=== PATIENT | male | born 1950 | race Caucasian/White ===

== ENCOUNTER 2017-05-29 11:17 | Emergency (ER) | payer BC ==
[~2017-05-29] VITALS: Ht 162.6 cm; Wt 79.0 kg
[2017-05-29 11:21] VITALS: TEMP 37; Ht 162.6 cm; Wt 79.0 kg
[2017-05-29] MEDS ORDERED: AMOXICIL/CLAVU 875MG HOME PACK PO ONE (11:45)
[2017-05-29] MEDS ORDERED: ALFU10TA2 PO (11:49)
[2017-05-29] MEDS ORDERED: LEVO25TA PO (11:49)
[2017-05-29] MEDS ORDERED: VYT1040 PO (11:49)
[2017-05-29] MEDS ORDERED: AMOX875T PO (11:52)
--- NOTE | 2017-05-29 12:21 | EMERGENCY ROOM VISIT NOTE ---
ED Visit Note First contact with patient: 11:24 Patient was seen by our PA/PHOTOFINISHING LABORATORY WORKER. I was involved in the patient's care and did evaluate the patient myself. I was involved in the care throughout the ER stay. The patient has suffered a dog bite. The areas of open skin are small and suturing is not required and actually I think contraindicated. The patient is going to be placed on antibiotics and will watch for infection. He was discharged home.
[2017-05-29 12:22] VITALS: BP 135/75; PULSE 88; O2SAT 98
--- NOTE | 2017-05-29 16:44 | EMERGENCY ROOM VISIT NOTE ---
History First contact with patient: 11:24 Chief Complaint: BITE Stated Complaint: DOG BITE RIGHT HAND History of Present Illness The patient is a 66 year old male who presents to the Emergency Room with complaints of a dog bite to his right hand. The injury happened approximately 1.5 hours ago. He was accidentally bitten by his sons dog. The patient reports that he accidentally moved one of the dog's biscuits and the dog bit him. The dog is up-to-date on its immunizations, and the patient's tetanus immunization is up-to-date. The patient denies any significant swelling or bleeding. He rates his discomfort a 5 out of 10, and is [id number]. Review of Systems 10 system review was performed and was negative except for pertinent positives and negatives as indicated in history of present illness Past Medical/Surgical History Medical Problems: (1) No significant past medical history (2) No significant past medical history Surgical Problems: (1) No history of previous surgery (2) No history of previous surgery Family History Unremarkable Social History Smoking Status: Never Smoker Alcohol Use: none Marital Status: Occupation Status: retired Current/Historical Medications Scheduled Alfuzosin Hcl (Uroxatral), 10 MG PO DAILY Amoxicillin & Pot Clavulanate (Augmentin 875-125 mg), 1 TAB PO BID Ezetimibe/Simvastatin (Vytorin 10-40 mg), 11 TAB PO DAILY Levothyroxine Sodium (Synthroid), 25 MCG PO DAILY Physical Exam Vital Signs Date Time Temp Pulse Resp B/P (MAP) Pulse Ox O2 Delivery O2 Flow Rate FiO2 05/29/17 12:22 88 20 135/75 98 05/29/17 11:21 37.0 66 18 146/84 95 Room Air Physical Exam CONSTITUTIONAL: Healthy and well nourished. Alert and oriented X 3 with positive affect. Patient does not appear in any acute distress. HEENT: Normocephalic, atraumatic. Pupils equal, round and reactive. NECK: Full active range of motion without discomfort. MUSCULOSKELETAL: Full range of motion of all joints without discomfort. INTEGUMENTARY: Examination of the right hand shows a 0.5 cm laceration over the ulnar aspect of the hypothenar eminence. There is no active bleeding. The wound is approximated well. There is no fat extrusion. The patient has no other tenderness to palpation through the metacarpals or wrist region. Capillary refill is less than 2 seconds, and the patient is able to flex and extend the fingers without discomfort. NEUROLOGIC: Right hand and fingers are sensory intact. Medical Decision & Procedures Medications Administered Medications (Trade) Dose Ordered Sig/Nirav Route Start Time Stop Time Status Last Admin Dose Admin Amoxicillin/ Clavulanate Potassium (Augmentin 875MG Home Pack) 1 homepack UD ONCE PO 05/29/17 11:45 05/29/17 11:46 DC 05/29/17 11:49 1 HOMEPACK ED Course Patient history and physical exam were performed. Nurse's notes were reviewed. Vital signs were reviewed and were normal. The patient was provided a home pack and prescription for Augmentin. He was encouraged to keep the wounds clean and covered with an antibody ointment and dressing. The wounds were bandaged. Instructed to watch closely for any signs of infection, and follow- up with his PCP as needed for further wound management. If the patient does start developing infection, he was instructed to seek further emergent reevaluation. The patient was happy with plan of care, voiced understanding of all discharge instructions, refused any analgesics while in the emergency department, and rated his pain a 3 out of 10 at the time of discharge. The patient was also seen and examined by Dr. Bosch, ED attending physician who agrees with workup and plan of care. Medical Decision Medication Reconcilliation Current Medication List: was personally reviewed by me Blood Pressure Screening Patient's blood pressure: Normal blood pressure Impression Primary Impression: Dog bite of right hand Departure Information Dispostion Home / Self-Care Condition GOOD Prescriptions Amoxicillin & Pot Clavulanate (Augmentin 875-125 mg) 1 Tab Tab 1 TAB PO BID for 4 Days, #8 TAB Prov: Ariel De La Cruz PA 05/29/17 Forms HOME CARE DOCUMENTATION FORM, IMPORTANT VISIT INFORMATION Patient Instructions [facility] Additional Instructions Take Augmentin every 12 hours as prescribed. Keep wounds clean and covered with an antibiotic ointment and dressing until they heal. Watch for any developing infection, and seek further emergent reevaluation if this happens. Ibuprofen or Tylenol as needed for pain. Problem Qualifiers Primary Impression: Dog bite of right hand Encounter type: initial encounter Qualified Codes: S61.451A - Open bite of right hand, initial encounter; W54.0XXA - Bitten by dog, initial encounter
== END 2017-05-29 12:25 | disposition home or self-care (01) ==
LOC: C.EDB 11:22 → C.EDD 12:25
DX: S61.451A Open bite of right hand, initial encounter (principal); W54.0XXA Bitten by dog, initial encounter